=== PATIENT | male | born 1975 | race Caucasian/White ===

== ENCOUNTER 2025-05-07 16:39 | Emergency (ER) | payer MEDICAID, SELFPAY ==
[2025-05-07 16:41] VITALS: BP 142/118; PULSE 82; RESP 13; TEMP 36.4; O2SAT 97; BMI 31.0
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
[2025-05-07 17:02] LABS: Hematocrit 43.2 % (40-54); Hemoglobin 14.9 g/dL (13.0-16.5); Immature Granulocytes Count 0.050 X10^3/uL (0.0-0.0); Mean Corp Hgb Conc 34.5 g/dL (32-36); Mean Corpuscular Volume 90.6 fL (80-94); Mean Platelet Vol. 9.4 fl (6.2-12.0); NRBC Flagged by Analyzer 0 % (0-5); Platelet Count 215 K/mm3 (150-450); RBC Distribution Width CV 12.0 % (11.6-14.6); RBC Distribution Width SD 39.9 fl (35.1-43.9); Red Blood Count 4.77 M/mm3 (4.6-6.2); White Blood Count 9.4 K/mm3 (4.4-11.0)
[2025-05-07 17:06] LABS: Prothrombin Time (Protime)PT. 13.1 SECONDS (11.7-14.9)
[2025-05-07 17:07] LABS: Partial Thromboplast Time 23.9 Seconds (24.1-36.2)
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
[2025-05-07 17:28] LABS: Anion Gap 15 (5-15); BUN 19 mg/dL (4-19); BUN/Creat Ratio 19.0 RATIO (10-20); Calcium,Total 7.8 mg/dL (7.6-11.0); Carbon Dioxide 16.0 mmol/L (21.0-32.0); Chloride 105 mmol/L (98-108); Estimated Creatinine Clearance 104.94 ml/min (50-250); Glucose 90 mg/dL (70-99); Potassium 3.7 mmol/L (3.3-5.1)
[2025-05-07] MEDS: Lidocaine 1% /Epi 1:100 (20ml) 20 ML Vial INFILT (17:32)
--- OUTSIDE RECORDS SUMMARY | 2025-05-07 17:35 | XMS RPT_ITS | CCD ---
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 08-23-2024 Office outpatient visit 15 minutes Fay Rouse MD Work Phone: [facility] Comment on above: Acute iritis (Primar y Dx) Start: 08-23-2024 End: 08-23-2024 ambulatory [facility] Start: 08-16-2024 End: 08-16-2024 Emergency department patient visit NO PCP AA NO PCP [facility] Start: 08-15-2024 End: 08-15-2024 Telephone encounter Fay Rouse MD Work Phone: [facility] Comment on above: Iritis, chronic (Paola kristine Dx) Start: 08-11-2024 End: 08-11-2024 Subsequent hospital visit by physician Fay Rouse MD Work Phone: [facility] [address] [facility] Comment on above: Acute iritis Start: 08-11-2024 End: 11-10-2024 ambulatory [facility] Comment on above: Unspecified acute an d subacute iridocyclitis (Primary Dx) Start: 08-09-2024 End: 08-09-2024 Office outpatient visit 15 minutes Fay Rouse MD Work Phone: [facility] [place] Comment on above: Acute iritis (Primar y Dx) Start: 08-09-2024 End: 08-09-2024 ambulatory [facility] Start: 08-08-2024 End: 08-08-2024 Telephone encounter Serena Garcia [facility] [place] Comment on above: Eye Problem Start: 11-12-2022 End: 11-12-2022 Subsequent hospital visit by physician Alvin Valles MD Work Phone: [facility] Comment on above: Acute iritis (Primar y Dx) Start: 11-03-2022 Refill [facility] Comment on above: OTHER Start: 10-29-2022 End: 10-29-2022 Subsequent hospital visit by physician Anamika Madison MD Work Phone: [facility] Comment on above: Acute anterior uveit is of left eye (Primary Dx) Start: 10-24-2022 Telephone encounter Noemí leroy MD Work Phone: [facility] Comment on above: Appointment Start: 10-24-2022 End: 10-24-2022 Subsequent hospital visit by physician Alvin Valles MD Work Phone: [facility] Comment on above: Acute anterior uveit is of right eye (Primary Dx) Start: 10-17-2022 End: 10-17-2022 Subsequent hospital visit by physician Anamika Madison MD Work Phone: [facility] Comment on above: Acute iritis (Primar y Dx); Acute anterior uveitis of left eye Start: 10-14-2022 End: 10-14-2022 Subsequent hospital visit by physician Anamika Madison MD Work Phone: [facility] Comment on above: Acute iritis (Primar y Dx) Start: 12-21-2018 Patient encounter procedure UNKNOWN PROVIDER [facility] Start: 12-14-2018 Patient encounter procedure UNKNOWN PROVIDER [facility] Start: 12-06-2018 Patient encounter procedure UNKNOWN PROVIDER [facility] Start: 12-03-2018 Emergency department patient visit UNKNOWN PROVIDER [facility] Start: 06-29-2018 Emergency department patient visit UNKNOWN PROVIDER [facility] Start: 04-06-2016 End: 04-06-2016 Emergency department patient visit [facility] Facility:[facility] Plan of Treatment Date Care Activity Detail Author Start: 2051 RSV Immunization for Adults (1 - 1-dose 75+ series) RSV Immunization for Adults (1 - 1-dose 75+ series) [facility] Start: 2026 Zoster Vaccines (1 o f 2) Zoster Vaccines (1 of 2) [facility] Start: 09-27-2024 End: 09-27-2024 Patient encounter procedure 09/27/2024 8:45 AM EST Appointment [facility] [address] [place] [address] Fay Rouse MD [address] [place], [place] [id number] [facility] [place] Start: 09-08-2024 End: 08-09-2025 XR Chest 2 Views XR chest 2 views Imaging Routine Acute iritis Expected: 09/08/2024, Expires: 08/09/2025 [facility] Comment on above: Expected: 09/08/2024 , Expires: 08/09/2025 Start: 08-31-2024 End: 08-31-2024 Patient encounter procedure 08/31/2024 1:30 PM EST Appointment [facility] [place] [address] [place] [phone] Fay Rouse MD [address] [place] [address] [facility] [place] Start: 08-29-2024 End: 08-29-2024 Patient encounter procedure 08/29/2024 1:45 PM EST Appointment [facility] [place] [address] [place] [phone] Fay Rouse MD [address] [place] [address] [facility] [place] Start: 08-23-2024 End: 08-23-2024 Patient encounter procedure 08/23/2024 8:30 AM EST Appointment [facility] [place] [address] [place] [phone] Fay Rouse MD [address] [place] [address] [facility] [place] Start: 08-15-2024 End: 08-15-2025 Acetylcholine receptor, binding Acetylcholine receptor, binding Lab Routine Iritis, chronic Expected: 08/15/2024 (Approximate), Expires: 08/15/2025 [facility] Comment on above: Expected: 08/15/2024 (Approximate), Expires: 08/15/2025 Start: 08-15-2024 End: 08-15-2025 MAINE Screen, IFA, Reflex Titer/Pattern/MPLX 11 Ab ([facility]) MAINE Screen, IFA, Reflex Titer/Pattern/MPLX 11 Ab ([facility]) Lab Routine Iritis, chronic Expected: 08/15/2024 (Approximate), Expires: 08/15/2025 [facility] Comment on above: Expected: 08/15/2024 (Approximate), Expires: 08/15/2025 Start: 08-15-2024 End: 08-15-2025 Angiotensin converting enzyme [Enzymatic activity/volume] in Serum or Plasma Angiotensin converting enzyme Lab Routine Iritis, chronic Expected: 08/15/2024 (Approximate), Expires: 08/15/2025 [facility] Work Phone: Comment on above: Expected: 08/15/2024 (Approximate), Expires: 08/15/2025 Start: 08-15-2024 End: 08-15-2025 C reactive protein [Mass/volume] in Serum or Plasma C-reactive protein Lab Routine Iritis, chronic Expected: 08/15/2024 (Approximate), Expires: 08/15/2025 [facility] Comment on above: Expected: 08/15/2024 (Approximate), Expires: 08/15/2025 Start: 08-15-2024 End: 08-15-2025 CBC panel - Blood by Automated count CBC Lab Routine Iritis, chronic Expected: 08/15/2024 (Approximate), Expires: 08/15/2025 [facility] Comment on above: Expected: 08/15/2024 (Approximate), Expires: 08/15/2025 Start: 08-15-2024 End: 08-15-2025 Erythrocyte sedimentation rate Sedimentation rate, automated Lab Routine Iritis, chronic Expected: 08/15/2024 (Approximate), Expires: 08/15/2025 [facility] Comment on above: Expected: 08/15/2024 (Approximate), Expires: 08/15/2025 Start: 08-15-2024 End: 08-15-2025 Lyme disease, PCR Lyme disease, PCR Lab Routine Iritis, chronic Expected: 08/15/2024 (Approximate), Expires: 08/15/2025 [facility] Comment on above: Expected: 08/15/2024 (Approximate), Expires: 08/15/2025 Start: 08-15-2024 End: 08-15-2025 QUANTIFERON TB GOLD Quantiferon TB Gold Lab Routine Iritis, chronic Expected: 08/15/2024 (Approximate), Expires: 08/15/2025 [facility] Comment on above: Expected: 08/15/2024 (Approximate), Expires: 08/15/2025 Start: 08-15-2024 End: 08-15-2025 Reagin Ab [Presence] in Serum by RPR RPR Lab Routine Iritis, chronic Expected: 08/15/2024 (Approximate), Expires: 08/15/2025 [facility] Comment on above: Expected: 08/15/2024 (Approximate), Expires: 08/15/2025 Start: 08-11-2024 End: 08-11-2025 Borrelia burgdorferi IgG+IgM Ab [Units/volume] in Serum LYME ANTIBODY SCREEN WITH REFLEX TO IMMUNOBLOT Lab Routine Unspecified acute and subacute iridocyclitis Expected: 08/11/2024 (Approximate), Expires: 08/11/2025 [facility] Comment on above: Expected: 08/11/2024 (Approximate), Expires: 08/11/2025 Start: 08-11-2024 End: 08-11-2025 Borrelia Species by PCR(Lyme Disease) (Sendout) Borrelia Species by PCR(Lyme Disease) (Sendout) Lab Routine Unspecified acute and subacute iridocyclitis Expected: 08/11/2024 (Approximate), Expires: 08/11/2025 [facility] Work Phone: Comment on above: Expected: 08/11/2024 (Approximate), Expires: 08/11/2025 Start: 08-11-2024 End: 08-11-2025 HIV 1 RNA [#/volume] (viral load) in Serum or Plasma by DORENE with probe detection HIV-1 RNA, Quantitative Viral Load, PCR Lab Routine Unspecified acute and subacute iridocyclitis Expected: 08/11/2024 (Approximate), Expires: 08/11/2025 [facility] Comment on above: Expected: 08/11/2024 (Approximate), Expires: 08/11/2025 Start: 08-09-2024 End: 08-09-2025 Angiotensin converting enzyme [Enzymatic activity/volume] in Serum or Plasma Angiotensin converting enzyme Lab Routine Acute iritis Expected: 08/09/2024 (Approximate), Expires: 08/09/2025 [facility] Comment on above: Expected: 08/09/2024 (Approximate), Expires: 08/09/2025 Start: 08-09-2024 End: 08-09-2025 Basic metabolic 1998 panel - Serum or Plasma Basic metabolic panel Lab Routine Acute iritis Expected: 08/09/2024 (Approximate), Expires: 08/09/2025 [facility] Work Phone: Comment on above: Expected: 08/09/2024 (Approximate), Expires: 08/09/2025 Start: 08-09-2024 End: 08-09-2025 CBC panel - Blood by Automated count CBC Lab Routine Acute iritis Expected: 08/09/2024 (Approximate), Expires: 08/09/2025 [facility] Comment on above: Expected: 08/09/2024 (Approximate), Expires: 08/09/2025 Start: 08-09-2024 End: 08-09-2025 Lyme disease, PCR Lyme disease, PCR Lab Routine Acute iritis Expected: 08/09/2024 (Approximate), Expires: 08/09/2025 [facility] Comment on above: Expected: 08/09/2024 (Approximate), Expires: 08/09/2025 Start: 08-09-2024 End: 08-09-2025 QUANTIFERON TB GOLD Quantiferon TB Gold Lab Routine Acute iritis Expected: 08/09/2024 (Approximate), Expires: 08/09/2025 [facility] Comment on above: Expected: 08/09/2024 (Approximate), Expires: 08/09/2025 Start: 08-09-2024 End: 08-09-2025 Reagin Ab [Presence] in Serum by RPR RPR Lab Routine Acute iritis Expected: 08/09/2024 (Approximate), Expires: 08/09/2025 [facility] Comment on above: Expected: 08/09/2024 (Approximate), Expires: 08/09/2025 Start: 08-09-2024 End: 08-09-2025 Rheumatoid factor [Units/volume] in Serum or Plasma Rheumatoid factor Lab Routine Acute iritis Expected: 08/09/2024 (Approximate), Expires: 08/09/2025 [facility] Comment on above: Expected: 08/09/2024 (Approximate), Expires: 08/09/2025 Start: 08-09-2024 End: 09-08-2024 XR Lumbar spine 2 or 3 Views XR lumbar spine 2 or 3 views Imaging Routine Acute iritis Expected: 08/09/2024, Expires: 09/08/2024 [facility] Comment on above: Expected: 08/09/2024 , Expires: 09/08/2024 Start: 08-09-2024 End: 08-09-2024 Patient encounter procedure 08/09/2024 1:00 PM EST Appointment [facility] [place] [address] [place] [phone] Fay Rouse MD [address] [place] [address] [facility] [place] Start: 05-29-2024 COVID-19 Vaccine ( season) COVID-19 Vaccine () [facility] Start: 05-29-2024 Influenza vaccination Influenza Vacc ine (#1) [facility] Start: 01-08-2023 End: 01-08-2023 Patient encounter procedure 01/08/2023 Office Visit Rheumatology Noemí Novak MD [address] [place] [address] [facility] Start: 12-05-2022 End: 12-05-2022 Patient encounter procedure 12/05/2022 Appointment Ophthalmology Alvin Valles MD [address] [place] [address] [facility] Start: 12-02-2022 End: 12-02-2022 Patient encounter procedure 12/02/2022 Appointment Ophthalmology Alvin Valles MD [address] [place] [address] [facility] Start: 11-12-2022 End: 11-12-2022 Patient encounter procedure 11/12/2022 Appointment Ophthalmology Alvin Valles MD [address] [place] [address] [facility] Start: 10-29-2022 End: 10-29-2022 Patient encounter procedure 10/29/2022 Appointment Ophthalmology Anamika Madison MD [address] [place], [place] [id number] [facility] Start: 10-24-2022 End: 10-24-2022 Patient encounter procedure 10/24/2022 Appointment Ophthalmology Alvin Valles MD [address] [place], [place] [phone] [facility] Start: 10-17-2022 End: 10-17-2022 Patient encounter procedure 10/17/2022 Appointment Ophthalmology Anamika Madison MD [address] [place] [address] [facility] Start: 05-29-2022 Influenza vaccination Influenza Vacc ine (#1) [facility] Start: 10-09-2021 COVID-19 Vaccine (4 - Booster for Pfizer series) COVID-19 Vaccine (4 - Booster for Pfizer series) [facility] Start: 1995 DTaP/Tdap/Td Vaccine s (1 - Tdap) DTaP/Tdap/Td Vaccines (1 - Tdap) [facility] Start: 1995 Hepatitis B Vaccines (1 of 3 - 19+ 3-dose series) Hepatitis B Vaccines (1 of 3 - 19+ 3-dose series) [facility] Start: 1995 Pneumococcal Vaccine : Pediatrics (0 to 5 Years) and At-Risk Patients (6 to 49 Years) (1 of 2 - PCV) Pneumococcal Vaccine: Pediatrics (0 to 5 Years) and At-Risk Patients (6 to 49 Years) (1 of 2 - PCV) [facility] Start: 1994 Diabetes mellitus screening Diabetes Screening [facility] Start: 1994 Hepatitis C screening Hepatitis C [facility] Start: 1988 Depression Screening Depression Scre idris [facility] Start: 1982 Pneumococcal Vaccine : Pediatrics (0 to 5 Years) and At-Risk Patients (6 to 64 Years) (1 - PCV) Pneumococcal Vaccine: Pediatrics (0 to 5 Years) and At-Risk Patients (6 to 64 Years) (1 - PCV) [facility] Start: 1982 Pneumococcal Vaccine : Pediatrics (0 to 5 Years) and At-Risk Patients (6 to 64 Years) (1 of 2 - PCV) Pneumococcal Vaccine: Pediatrics (0 to 5 Years) and At-Risk Patients (6 to 64 Years) (1 of 2 - PCV) [facility] Start: 1977 MMR Vaccines (1 of 1 - Standard series) MMR Vaccines (1 of 1 - Standard series) [facility] Start: 1976 Hepatitis B Vaccines (1 of 3 - 3-dose series) Hepatitis B Vaccines (1 of 3 - 3-dose series) [facility] Start: 1976 HIV screening HIV Screening [facility] Start: 1976 Lipid panel Lipid Panel [facility] Start: 1976 Screening for malign ant neoplasm of colon [facility] QUANTIFERON - PLUS G RAY TUBE QUANTIFERON - PLUS GALLAGHER TUBE Lab Routine Iritis, chronic Ordered: 08/15/2024 [facility] Comment on above: Ordered: 08/15/2024 QUANTIFERON - PLUS GREEN TUBE QUANTIFERON - PLUS GREEN TUBE Lab Routine Iritis, chronic Ordered: 08/15/2024 [facility] Comment on above: Ordered: 08/15/2024 QUANTIFERON - PLUS PURPLE TUBE QUANTIFERON - PLUS PURPLE TUBE Lab Routine Iritis, chronic Ordered: 08/15/2024 [facility] Comment on above: Ordered: 08/15/2024 QUANTIFERON - PLUS YELLOW TUBE QUANTIFERON - PLUS YELLOW TUBE Lab Routine Iritis, chronic Ordered: 08/15/2024 [facility] Comment on above: Ordered: 08/15/2024 End: 08-11-2024 XR Chest 2 Views [facility] Comment on above: Once for 1 Occurrenc es starting 08/11/2024 until 08/11/2024 End: 08-11-2024 XR Lumbar spine 2 or 3 Views [facility] Comment on above: Once for 1 Occurrenc es starting 08/11/2024 until 08/11/2024 Payers Date Payer Category Payer Medicaid HMO [employer] [id number] 2022 Medicaid [id number] 1976 Unknown [id number] 1976 Unknown [id number] 1976 Unknown [id number] 1976 Unknown [id number] 1976 Unknown [id number] 1976 Unknown [id number] 1959 Medicaid [id number] Self-pay Unknown Social History Date Type Detail Facility Start: 08-09-2024 Tobacco smoking status [facility] Smokes t obacco daily [facility] History of tobacco use Cigarette Smoker S [facility] Start: 09-15-2023 End: 08-09-2024 Alcoholic beverage intake Current drinker of alcohol (finding) [facility] Start: 09-15-2023 End: 08-23-2024 Alcoholic beverage intake [facility] Start: 09-15-2023 End: 08-23-2024 Tobacco use panel [facility] Start: 1975 Sex assigned at Not on file S [facility] Start: 04-28-2022 Sex Male (finding) [facility] Start: 08-09-2024 Tobacco use and exposure Smokeless t obacco non-user [facility] Start: 10-04-2022 End: 11-12-2022 Exposure to SARS-CoV-2 (event) Not sure [facility] Start: 10-14-2022 End: 10-17-2022 Alcohol intake Ex-drinker (finding) [facility] Clinical Notes 10-14-2022 to 09-02-2024 Telephone Encounter - Fay Rouse MD - 09/02/2024 8:50 AM ESTTelephone Encounter - Fay Rouse MD - 09/02/2024 8:50 AM ESTTelephone Encounter - Minda Tomas - 08/29/2024 3:14 PM EST Note Date & Type Note Facility 09-02-2024 Telephone encount er Note Called pt with result of cbc; has high eosinophils . He does not have a primary care doctor, so he will schedule with one, and we will repeat the cbc on his return visit on . He has stopped all of his drops, and will take pf every day x 1 week, then every other day until next visit. [facility] 09-02-2024 Miscellaneous Notes Formattin g of this note might be different from the original. Called pt with result of cbc; has high eosinophils . He does not have a primary care doctor, so he will schedule with one, and we will repeat the cbc on his return visit on . He has stopped all of his drops, and will take pf every day x 1 week, then every other day until next visit. documented in this encounter [facility] 08-29-2024 Telephone encount er Note Called patient for no show appointment today, patient stated he forgot and to reschedule and leave message for him of date and time and that he will make appointment. I called patient back and left message with appointment information and advised he needs to call back if unable to make it. [facility] 08-29-2024 Miscellaneous Notes Formattin g of this note might be different from the original. Called patient for no show appointment today, patient stated he forgot and to reschedule and leave message for him of date and time and that he will make appointment. I called patient back and left message with appointment information and advised he needs to call back if unable to make it. documented in this encounter [facility] 08-23-2024 History of Presen t illness Narrative Images from the original note were not included. [facility] - [address] [facility] [address] Dept: [phone] Dept Loc: [phone] Visit type: Established patient Reason for Visit: Other (Acute iritis ) Assessment and Plan Much better now Plan Continue brimonidine bid, atropine 1 ggt od every other day, pf 6 x per day for 3 days then qid. Rv next week Subjective HPI Other Additional comments: Acute iritis Comments Pt here for return visit acute iritis. C/o seeing small dark dots on va od pretty much all the time x about 2 weeks and little sensitive to the light, mostly at night, but may be from aging per pt. Sts no more cloudy va od. Sts no any more pain, burning and itching ou. Sts using prednisolone q1h od, red top 2 x day od, purple 2 x day od. Last edited by Fay Rouse MD on 08/23/2024 9:10 AM. ROS Positive for: Eyes Last edited by Serena Garcia on 08/23/2024 8:31 AM. No Known Allergies Current Outpatient Medications Medication Sig Dispense Refill cephalexin (Keflex) 500 MG capsule sulfamethoxazole-trimethoprim (Bactrim DS) 800-160 MG tablet acetaminophen (Tylenol) 120 MG suppository Insert into the rectum. atropine 1 % ophthalmic solution Administer 1 drop into the right eye 2 times daily. 5 mL 1 brimonidine (AlphaGAN) 0.2 % ophthalmic solution Administer 1 drop into the right eye 2 times daily. 5 mL 3 prednisoLONE acetate (Pred-Forte) 1 % ophthalmic suspension Administer 1 drop into the right eye every 2 (two) hours while awake for 14 days. 10 mL 3 No current facility-administered medications for this encounter. Past Medical History: Diagnosis Date Acute anterior uveitis of left eye 12/06/2018 Blurry vision Decreased vision Light sensitivity Social History Tobacco Use Smoking status: Every Day Current packs/day: 1.00 Types: Cigarettes Smokeless tobacco: Never Substance Use Topics Alcohol use: Yes Alcohol/week: 12.0 standard drinks of alcohol Types: 12 Cans of beer per week Past Surgical History: Procedure Laterality Date TONSILLECTOMY (HISTORICAL) Family History Problem Relation Name Age of Onset Blindness Mother Diabetes Mother Glaucoma Neg Hx Cataracts Neg Hx Amblyopia Neg Hx Retinal detachment Neg Hx Macular degeneration Neg Hx Strabismus Neg Hx Objective Base Eye Exam Visual Acuity (Snellen - Linear) Right Left Dist cc 20/20 -2 20/20 Tonometry (Applanation, 8:42 AM) Right Left Pressure 16 15 Neuro/Psych Oriented x3: Yes Mood/Affect: Normal Slit Lamp and Fundus Exam Slit Lamp Exam Right Left Conjunctiva/Sclera White and quiet White and quiet Cornea Clear Clear Anterior Chamber deep and quiet deep and quiet Iris irregular pupillary ruff irregular pupillary ruff Lens pigment on ant surface pigment on ant surface Data Reviewed and Summarized No current labs Fay Rouse MD documented in this encounter [facility] 08-15-2024 History of Presen t illness Narrative Images from the original note were not included. [facility] [address] [place] [address] Dept: [phone] Loc: [phone] Visit type: Established patient Reason for Visit: No chief complaint on file. Assessment and Plan Problem List Items Addressed This Visit None Visit Diagnoses Iritis, chronic - Primary Relevant Orders Angiotensin converting enzyme CBC Acetylcholine receptor, binding C-reactive protein Sedimentation rate, automated Quantiferon TB Gold RPR Lyme disease, PCR MA[place] Screen, IFA, Reflex Titer/Pattern/MPLX 11 Ab ([facility]) No follow-ups on file. Subjective No Known Allergies Current Outpatient Medications Medication Sig Dispense Refill acetaminophen (Tylenol) 120 MG suppository Insert into the rectum. atropine 1 % ophthalmic solution Administer 1 drop into the right eye 2 times daily. 5 mL 1 brimonidine (AlphaGAN) 0.2 % ophthalmic solution Administer 1 drop into the right eye 2 times daily. 5 mL 3 prednisoLONE acetate (Pred-Forte) 1 % ophthalmic suspension Administer 1 drop into the right eye every 2 (two) hours while awake for 14 days. 10 mL 3 No current facility-administered medications for this visit. Past Medical History: Diagnosis Date Acute anterior uveitis of left eye 12/06/2018 Blurry vision Decreased vision Light sensitivity Social History Tobacco Use Smoking status: Every Day Current packs/day: 1.00 Types: Cigarettes Smokeless tobacco: Never Substance Use Topics Alcohol use: Yes Alcohol/week: 12.0 standard drinks of alcohol Types: 12 Cans of beer per week Past Surgical History: Procedure Laterality Date TONSILLECTOMY (HISTORICAL) Family History Problem Relation Name Age of Onset Blindness Mother Diabetes Mother Glaucoma Neg Hx Cataracts Neg Hx Amblyopia Neg Hx Retinal detachment Neg Hx Macular degeneration Neg Hx Strabismus Neg Hx Objective Not recorded Data Reviewed and Summarized The patient will need the following 13 tests completed on: 08/15/2024 1. Angiotensin converting enzyme 8. CBC 2. Acetylcholine receptor, binding 9. C-reactive protein 3. Sedimentation rate, automated 10. Quantiferon TB Gold 4. RPR 11. Lyme disease, PCR 5. QUANTIFERON - PLUS GALLAGHER TUBE 12. QUANTIFERON - PLUS GREEN TUBE 6. QUANTIFERON - PLUS PURPLE TUBE 13. QUANTIFERON - PLUS YELLOW TUBE 7. MAINE Screen, IFA, Reflex Titer/Pattern/MPLX 11 Ab ([facility]) Diagnosis: Iritis, chronic (H20.10) Authorizing Provider: MD Fay Lima MD documented in this encounter [facility] 08-15-2024 Telephone encount er Note Pt called at home with results for no ankylosing spondylitis on spine films and no sarcoidosis or tb on chest xray. Still needs to have labs ordered. [facility] 08-15-2024 Miscellaneous Notes Formattin g of this note might be different from the original. Pt called at home with results for no ankylosing spondylitis on spine films and no sarcoidosis or tb on chest xray. Still needs to have labs ordered. documented in this encounter [facility] 08-09-2024 History of Presen t illness Narrative Images from the original note were not included. [facility] - [address] [facility] [address] Dept: [phone] Dept Loc: [phone] Visit type: Established patient Reason for Visit: Other (Red, foggy and pain od) Recurrent anterior uveitis right eye; no evidence of prior lab tests or xrays Assessment and Plan Recurrent uveitis right eye. Pt call immediately for office visit when eye becomes red, sore and sensitive to light Predforte right eye q 1 - 2 hours while awake, brimonidine od bid, atropine 1% od bid Get labs and cxr and ls spine films Rv 1 - 2 weeks Subjective HPI Other Additional comments: Red, foggy and pain od Comments Pt with Hx of acute anterior uveitis presents to the clinic c/o red, foggy and painful od. C/o feels like muscle stretch on peripheral side od and really sore 3 days ago but not now. C/o one minute va od blurry and than turns lilly barley see through like fog x about 4 days. C/o od very sensitive to the light no any burning, itching and tearing. Sts using OTC drops (gtts) PRN ou Last edited by Serena Garcia on 08/09/2024 1:20 PM. ROS Positive for: Eyes Last edited by Serena Garcia on 08/09/2024 1:20 PM. No Known Allergies Current Outpatient Medications Medication Sig Dispense Refill acetaminophen (Tylenol) 120 MG suppository Insert into the rectum. No current facility-administered medications for this encounter. Past Medical History: Diagnosis Date Acute anterior uveitis of left eye 12/06/2018 Blurry vision Decreased vision Light sensitivity Social History Tobacco Use Smoking status: Every Day Current packs/day: 1.00 Types: Cigarettes Smokeless tobacco: Never Substance Use Topics Alcohol use: Yes Alcohol/week: 12.0 standard drinks of alcohol Types: 12 Cans of beer per week Past Surgical History: Procedure Laterality Date TONSILLECTOMY (HISTORICAL) Family History Problem Relation Name Age of Onset Blindness Mother Diabetes Mother Glaucoma Neg Hx Cataracts Neg Hx Amblyopia Neg Hx Retinal detachment Neg Hx Macular degeneration Neg Hx Strabismus Neg Hx Objective Base Eye Exam Visual Acuity (Snellen - Linear) Right Left Dist cc 20/20 20/20 Tonometry (Applanation, 1:25 PM) Right Left Pressure 18 16 Neuro/Psych Oriented x3: Yes Mood/Affect: Normal Slit Lamp and Fundus Exam Slit Lamp Exam Right Left Conjunctiva/Sclera 2+ injections Cornea Clear Anterior Chamber 2+ cell Iris koeppe nodules, hx post synechiae Data Reviewed and Summarized No current labs Fay Rouse MD documented in this encounter [facility] 08-09-2024 History of Presen t illness Narrative Images from the original note were not included. [facility] - [address] [facility] [address] Dept: [phone] Dept Loc: [phone] Visit type: Established patient Reason for Visit: Other (Red, foggy and pain od) Recurrent anterior uveitis right eye; no evidence of prior lab tests or xrays Assessment and Plan Recurrent uveitis right eye. Pt call immediately for office visit when eye becomes red, sore and sensitive to light Predforte right eye q 1 - 2 hours while awake, brimonidine od bid, atropine 1% od bid Get labs and cxr and ls spine films Rv 1 - 2 weeks Subjective HPI Other Additional comments: Red, foggy and pain od Comments Pt with Hx of acute anterior uveitis presents to the clinic c/o red, foggy and painful od. C/o feels like muscle stretch on peripheral side od and really sore 3 days ago but not now. C/o one minute va od blurry and than turns lilly barley see through like fog x about 4 days. C/o od very sensitive to the light no any burning, itching and tearing. Sts using OTC drops (gtts) PRN ou Last edited by Serena Garcia on 08/09/2024 1:20 PM. ROS Positive for: Eyes Last edited by Serena Garcia on 08/09/2024 1:20 PM. No Known Allergies Current Outpatient Medications Medication Sig Dispense Refill acetaminophen (Tylenol) 120 MG suppository Insert into the rectum. No current facility-administered medications for this encounter. Past Medical History: Diagnosis Date Acute anterior uveitis of left eye 12/06/2018 Blurry vision Decreased vision Light sensitivity Social History Tobacco Use Smoking status: Every Day Current packs/day: 1.00 Types: Cigarettes Smokeless tobacco: Never Substance Use Topics Alcohol use: Yes Alcohol/week: 12.0 standard drinks of alcohol Types: 12 Cans of beer per week Past Surgical History: Procedure Laterality Date TONSILLECTOMY (HISTORICAL) Family History Problem Relation Name Age of Onset Blindness Mother Diabetes Mother Glaucoma Neg Hx Cataracts Neg Hx Amblyopia Neg Hx Retinal detachment Neg Hx Macular degeneration Neg Hx Strabismus Neg Hx Objective Base Eye Exam Visual Acuity (Snellen - Linear) Right Left Dist cc 20/20 20/20 Tonometry (Applanation, 1:25 PM) Right Left Pressure 18 16 Neuro/Psych Oriented x3: Yes Mood/Affect: Normal Slit Lamp and Fundus Exam Slit Lamp Exam Right Left Conjunctiva/Sclera 2+ injections Cornea Clear Anterior Chamber 2+ cell Iris koeppe nodules, hx post synechiae Data Reviewed and Summarized No current labs Fay Rouse MD documented in this encounter [facility] 08-09-2024 Miscellaneous Notes Addended by: MINDA WOODALL on: 08/11/2024 01:22 PM Modules accepted: Orders Addended by: MINDA WOODALL on: 08/11/2024 01:23 PM Modules accepted: Orders documented in this encounter [facility] 08-09-2024 Note Addended by: Trenton WOODALL on: 08/11/2024 01:22 PM Modules accepted: Orders [facility] 08-09-2024 Note Addended by: Trenton WOODALL on: 08/11/2024 01:23 PM Modules accepted: Orders [facility] 08-09-2024 Note Addended by: Trenton WOODALL on: 08/11/2024 01:22 PM Modules accepted: Orders [facility] 08-09-2024 Note Addended by: Trenton WOODALL on: 08/11/2024 01:23 PM Modules accepted: Orders [facility] 08-09-2024 Note Addended by: Trenton WOODALL on: 08/11/2024 01:22 PM Modules accepted: Orders [facility] 08-09-2024 Note Addended by: Trenton WOODALL on: 08/11/2024 01:23 PM Modules accepted: Orders [facility] 08-09-2024 Note Addended by: Trenton WOODALL on: 08/11/2024 01:22 PM Modules accepted: Orders [facility] 08-09-2024 Note Addended by: Trenton WOODALL on: 08/11/2024 01:23 PM Modules accepted: Orders [facility] 08-09-2024 Note Addended by: Trenton WOODALL on: 08/11/2024 01:22 PM Modules accepted: Orders [facility] 08-09-2024 Note Addended by: Trenton WOODALL on: 08/11/2024 01:23 PM Modules accepted: Orders [facility] 08-08-2024 Telephone encount er Note Call and left msg to call us back with detail information about the floater. At the mean time pt call stating pt is seeing floater at first. Than od look red, va foggy. Pt talking on the phone does not want to give detail information but just wanted to schedule apt. Pt said ok schedule apt in Dec and let him loose his eye. Try to convince her but she is not listening. [facility] 08-08-2024 Miscellaneous Notes Formattin g of this note might be different from the original. Call and left msg to call us back with detail information about the floater. At the mean time pt call stating pt is seeing floater at first. Than od look red, va foggy. Pt talking on the phone does not want to give detail information but just wanted to schedule apt. Pt said ok schedule apt in Dec and let him loose his eye. Try to convince her but she is not listening. documented in this encounter [facility] 11-12-2022 History of Presen t illness Narrative Images from the original note were not included. [facility] CLNIC [address] [facility] [address] Dept: [phone] Dept Loc: [phone] Visit type: Established patient Reason for Visit: acute anterior uveitis od Assessment and Plan 1. Acute iritis 1 - This is at least anterior and intermediate uveitis since there are cells in the vitreous but it's not a panuveitis at this time. Patient is much improved compared to the last time I saw him so will not inject steroids at this time. Follow up in about 2 weeks (around 11/26/2022) for DOA. Subjective HPI 47 years old male with Hx of acute anterior uveitis od here for follow-up may be vitreous injection. Sts little blurry/foggy va od no pain but little sensitive to the light. Denies any burning, itching and tearing ou. Sts using white cap q1h od, registered nurse float pool 3 x day and chung cap 4 x day od Last edited by Serena Garcia on 11/12/2022 8:54 AM. ROS Positive for: Eyes Last edited by Serena Garcia on 11/12/2022 8:54 AM. No Known Allergies @[email or web address]@ Past Medical History: Diagnosis Date Acute anterior uveitis of left eye 12/06/2018 Blurry vision Decreased vision Light sensitivity Social History Tobacco Use Smoking status: Every Day Packs/day: 1.00 Types: Cigarettes Smokeless tobacco: Never Substance Use Topics Alcohol use: Yes Alcohol/week: 12.0 standard drinks Types: 12 Cans of beer per week Past Surgical History: Procedure Laterality Date TONSILLECTOMY (HISTORICAL) Family History Problem Relation Name Age of Onset Blindness Mother Diabetes Mother Glaucoma Neg Hx Cataracts Neg Hx Amblyopia Neg Hx Retinal detachment Neg Hx Macular degeneration Neg Hx Strabismus Neg Hx Objective Base Eye Exam Visual Acuity (Snellen - Linear) Right Left Dist sc 20/25 +2 Dist cc 20/50 -1 20/20 Dist ph cc 20/25 Tonometry (Applanation, 9:00 AM) Right Left Pressure 16 14 Pupils Dark Light APD Right 4 4 None Left 3 2 None Slit Lamp and Fundus Exam Slit Lamp Exam Right Left Lids/Lashes Normal Conjunctiva/Sclera w/q Cornea clear Anterior Chamber 1+ Cell and 1+ Flare Iris only a few small posterior synechiae left Lens Pigment on anterior lens surface Anterior Vitreous 2+ cell Fundus Exam Right Left Disc Normal C/D Ratio 0.0 Macula Normal Vessels Normal Periphery Normal Refraction Wearing Rx Sphere Cylinder Add Right +0.50 Sphere +1.50 Left +0.50 Sphere +1.50 Data Reviewed and Summarized Labs: Imaging/Testing: Procedures: Alvin Valles MD documented in this encounter [facility] 11-03-2022 Telephone encount er Note Sent message to Dr Maye donnelly for refills. deshaun [facility] 11-03-2022 Miscellaneous Notes Formattin g of this note might be different from the original. Sent message to Dr Maye donnelly for refills. deshaun [facility] called stating that Yony is out of his medication and. needs a refill on the cyclopentolate Contact Information: [phone] [address]ony [address] documented in this encounter [facility] 11-03-2022 Telephone encount er Note [facility] called stating that Yony is out of his medication and. needs a refill on the cyclopentolate Contact Information: [phone] [address]ony Shaw [address] [facility] 10-29-2022 Evaluation + Plan note Associated Problem(s): Acute anterior uveitis of left eye Vision has significantly improved. I agree with Dr. Valles that the hazy view to fundus implies vitreous cell. I believe I can visualize some in the anterior vitreous looking with the slit lamp right behind the lens. I will have him follow up with Dr. Valles to consider vitreous injection. Continue current drops. [facility] 10-29-2022 Miscellaneous Notes Associate d Problem(s): Acute anterior uveitis of left eye Vision has significantly improved. I agree with Dr. Valles that the hazy view to fundus implies vitreous cell. I believe I can visualize some in the anterior vitreous looking with the slit lamp right behind the lens. I will have him follow up with Dr. Valles to consider vitreous injection. Continue current drops. documented in this encounter [facility] 10-29-2022 History of Presen t illness Narrative Images from the original note were not included. [facility] CLN[facility] [address] [facility] [address] Dept: [phone] Dept Loc: [phone] Visit type: Established patient Reason for Visit: acute anterior uveitis od Assessment and Plan Acute anterior uveitis of left eye Vision has significantly improved. I agree with Dr. Valles that the hazy view to fundus implies vitreous cell. I believe I can visualize some in the anterior vitreous looking with the slit lamp right behind the lens. I will have him follow up with Dr. Valles to consider vitreous injection. Continue current drops. Follow up in about 1 week (around 11/05/2022). Subjective HPI 47 years old male here for follow-up acute anterior uveitis od. Sts va od lot better but still haggy. Sts still sensitive to super bright light. Sts stings only while using the drops (gtts). Sts using prednisolone Q1h, cydopentolate 3 x day, and ofloxacin 4 x day od Last edited by Serena Garcia on 10/29/2022 9:17 AM. ROS Positive for: Eyes Last edited by Serena Garcia on 10/29/2022 9:17 AM. No Known Allergies Past Medical History: Diagnosis Date Acute anterior uveitis of left eye 12/06/2018 Blurry vision Decreased vision Light sensitivity Social History Tobacco Use Smoking status: Every Day Packs/day: 1.00 Types: Cigarettes Smokeless tobacco: Never Substance Use Topics Alcohol use: Yes Alcohol/week: 12.0 standard drinks Types: 12 Cans of beer per week Past Surgical History: Procedure Laterality Date TONSILLECTOMY (HISTORICAL) Family History Problem Relation Name Age of Onset Blindness Mother Diabetes Mother Glaucoma Neg Hx Cataracts Neg Hx Amblyopia Neg Hx Retinal detachment Neg Hx Macular degeneration Neg Hx Strabismus Neg Hx Objective Base Eye Exam Visual Acuity (Snellen - Linear) Right Left Dist cc 20/40 -1 20/20 -2 Tonometry (Applanation, 9:22 AM) Right Left Pressure 15 15 Pupils Dark Light APD Right 5 5 None Left 2 1 None Neuro/Psych Oriented x3: Yes Mood/Affect: Normal Slit Lamp and Fundus Exam Slit Lamp Exam Right Left Lids/Lashes Normal Conjunctiva/Sclera injection White and quiet Cornea folds in descemet's Clear Anterior Chamber no flare, minimal cell Deep and quiet Iris posterior synechiae some broken some still present Round and reactive Lens Nuclear sclerosis significant pigment residuals on anterior capsule Clear Anterior Vitreous Cloudy ? visible cells Normal I ANAMIKA MADISON MD documented in this encounter [facility] 10-24-2022 Telephone encount er Note Name of caller: Paulina Contact phone number: [phone] Relationship to Patient: spouse/SO Provider: Dr. Novak Practice: [facility] Chief Complaint/Reason for Call: Paulina calling in requesting to schedule a new pt appt. She states that a referral has been placed and the pt will need to be seen for his cataracts; difficulty seeing prior to having surgery to check if there is any underlining conditions. Please Advise. Best time of day caller can be reached: ANY Patient advised that office/PCP has 24-48 business hours to return their call: Yes [facility] 10-24-2022 Miscellaneous Notes Formattin g of this note might be different from the original. Name of caller: Paulina Contact phone number: [phone] Relationship to Patient: spouse/SO Provider: Dr. Novak Practice: [facility] Chief Complaint/Reason for Call: Paulina calling in requesting to schedule a new pt appt. She states that a referral has been placed and the pt will need to be seen for his cataracts; difficulty seeing prior to having surgery to check if there is any underlining conditions. Please Advise. Best time of day caller can be reached: ANY Patient advised that office/PCP has 24-48 business hours to return their call: Yes documented in this encounter [facility] 10-24-2022 History of Presen t illness Narrative Images from the original note were not included. [facility] [address] [facility] [address] Dept: [phone] Dept Loc: [phone] Visit type: Established patient Reason for Visit: Eye Trauma Assessment and Plan 1. Acute anterior uveitis of right eye 1 - Stable. Still with cell and flare but I am concerned that patient has inflammation in the vitreous as the view of the retina is very poor. Although there is some cataract it is not sufficient to explain the poor view of the retina. I will continue PF1% q1h while awake and cyclopentolate TID (not QID) and have patient see Dr. Pierre next week. If she thinks there is inflammation in the vitreous consider a diagnostic tap and / or intravitreal steroid. Also note patient became belligerent during the visit and expected instant cure for vision and didn't want to listen to explanations of his pathology. I tried to explain the disease as best I could and explain a realistic time frame for results. This patient easily loses his temper. Follow up in about 1 week (around 10/31/2022) for DOA follow up with Dr. Pierre. Subjective HPI Eye Trauma In right eye. Type of trauma is direct. Duration of 2 weeks. Associated signs and symptoms include blurred vision. Comments: (eye pain: 2). Pain was noted as 0/10. Since onset it is stable. Comments Pt using pred forte (PF) every hour while awake right eye. Cyclo1% 4 times daily right eye. deh Last edited by SHARON Plaza on 10/24/2022 10:09 AM. ROS Positive for: Eyes (iritis and uveitis) Last edited by SHARON Plaza on 10/24/2022 10:09 AM. No Known Allergies @[email or web address]@ Past Medical History: Diagnosis Date Acute anterior uveitis of left eye 12/06/2018 Blurry vision Decreased vision Light sensitivity Social History Tobacco Use Smoking status: Every Day Packs/day: 1.00 Types: Cigarettes Smokeless tobacco: Never Substance Use Topics Alcohol use: Yes Alcohol/week: 12.0 standard drinks Types: 12 Cans of beer per week Past Surgical History: Procedure Laterality Date TONSILLECTOMY (HISTORICAL) Family History Problem Relation Name Age of Onset Blindness Mother Diabetes Mother Glaucoma Neg Hx Cataracts Neg Hx Amblyopia Neg Hx Retinal detachment Neg Hx Macular degeneration Neg Hx Strabismus Neg Hx Objective Base Eye Exam Visual Acuity (Snellen - Linear) Right Left Dist cc 20/200 20/20 Dist ph cc NI Correction: Glasses Tonometry (Applanation, 10:21 AM) Right Left Pressure 9 15 Neuro/Psych Oriented x3: Yes Mood/Affect: Normal Slit Lamp and Fundus Exam Slit Lamp Exam Right Left Lids/Lashes Normal Conjunctiva/Sclera White and quiet Cornea Clear Anterior Chamber 3+ Flare, 2+ Cell Deep and quiet Iris Round and reactive Lens Nuclear sclerosis Clear Anterior Vitreous Cloudy Normal Fundus Exam Poor view OD Data Reviewed and Summarized Labs: Imaging/Testing: Procedures: lAvin Valles MD documented in this encounter [facility] 10-17-2022 Evaluation + Plan note Associated Problem(s): Acute iritis right eye (OD) iritis has improved. Pupils is still trying to dilate and some synechiae remain. Continue current regimen. FU 1 week. Will get rheumatology referral as this is his second bout of iritis. [facility] 10-17-2022 Miscellaneous Notes Associate d Problem(s): Acute iritis right eye (OD) iritis has improved. Pupils is still trying to dilate and some synechiae remain. Continue current regimen. FU 1 week. Will get rheumatology referral as this is his second bout of iritis. documented in this encounter [facility] 10-17-2022 History of Presen t illness Narrative Images from the original note were not included. [facility] [address] [facility] [address] [facility] [address] Dept: [phone] Dept Loc: [phone] Visit type: Established patient Reason for Visit: iritis od Assessment and Plan Acute iritis right eye (OD) iritis has improved. Pupils is still trying to dilate and some synechiae remain. Continue current regimen. FU 1 week. Will get rheumatology referral as this is his second bout of iritis. Follow up in about 1 week (around 10/24/2022) for Iritis follow up. Subjective HPI 47 years old male here for follow-up iritis od. C/o od still irritating but nothing major like it was and feels dry. Sts od not sensitive to light any more. Sts still blurry va od but can see better than last time. Sts using prednisolone q1h od and cyclogel 4 x day od Last edited by Serena Garcia on 10/17/2022 2:50 PM. ROS Positive for: Eyes Last edited by Serena Garcia on 10/17/2022 2:50 PM. No Known Allergies Past Medical History: Diagnosis Date Acute anterior uveitis of left eye 12/06/2018 Blurry vision Decreased vision Light sensitivity Social History Tobacco Use Smoking status: Every Day Packs/day: 1.00 Types: Cigarettes Smokeless tobacco: Never Substance Use Topics Alcohol use: Not Currently Past Surgical History: Procedure Laterality Date TONSILLECTOMY (HISTORICAL) Family History Problem Relation Name Age of Onset Glaucoma Neg Hx Cataracts Neg Hx Amblyopia Neg Hx Retinal detachment Neg Hx Macular degeneration Neg Hx Blindness Mother Strabismus Neg Hx Objective Base Eye Exam Visual Acuity (Snellen - Linear) Right Left Dist cc 20/80 20/20 Dist ph cc NI Tonometry (Applanation, 2:56 PM) Right Left Pressure 9 14 Neuro/Psych Oriented x3: Yes Mood/Affect: Normal Slit Lamp and Fundus Exam External Exam Right Left External NormalNormalNormal NormalNormalNormal Slit Lamp Exam Right Left Lids/Lashes NormalNormalNormal Normal no chalazionNormalNormal no chalazion Conjunctiva/Sclera White and quietWhite and quietWhite and quiet, 3+ Injection White and quiet Cornea Corneal haze and enddothelial folds inferiorly. Small bullae at limbus at 5-6 o'clock Clear Anterior Chamber Poor view due to corneal changes, no hypopyon Deep and quiet Iris Iris vessels are engorged especially at 3 o'clock Round and reactive Lens fibrin? poor view through pupil Pigmented ring on capsule diffuse pigment on capsulePigmented ring on capsule diffuse pigment on capsulePigmented ring on capsule diffuse pigment on capsule Anterior Vitreous NormalNormal Fundus Exam Right Left Disc NormalNormal C/D Ratio 0.250.25 Macula Normal Vessels Normal Periphery Normal I ANAMIKA MADISON MD documented in this encounter [facility] 10-14-2022 Evaluation + Plan note Associated Problem(s): Acute iritis right eye (OD). Given that he has a history of iritis os, I think he will need a uveitic work up when feeling better. pred forte (PF) q 1 hour while awake. Cyclogyl qid. Fu on . [facility] 10-14-2022 Miscellaneous Notes Associate d Problem(s): Acute iritis right eye (OD). Given that he has a history of iritis os, I think he will need a uveitic work up when feeling better. pred forte (PF) q 1 hour while awake. Cyclogyl qid. Fu on . documented in this encounter [facility] 10-14-2022 History of Presen t illness Narrative Images from the original note were not included. [place] [facility] [address] [facility] [address] Dept: [phone] Dept Loc: [phone] Visit type: New patient Reason for Visit: Eye Pain and scratch on cornea od Assessment and Plan Acute iritis right eye (OD). Given that he has a history of iritis os, I think he will need a uveitic work up when feeling better. pred forte (PF) q 1 hour while awake. Cyclogyl qid. Fu on . Follow up in about 2 days (around 10/16/2022) for Iritis follow up. Subjective HPI Eye Pain In right eye. Characterized as aching, irritation, burning, pressure, sharp pain and pain with eye movement. Pain was noted as 10/10. Occurring constantly. It is worse throughout the day. Duration of days. Since onset it is rapidly worsening. Associated symptoms include blurred vision, foreign body sensation, redness, photophobia, tearing, headaches and nausea. Treatments tried include eye drops. Response to treatment was no improvement. Comments 47 years old male presents to the clinic c/o scratch on cornea od and pain 10/10. C/o could not sleep last night, tired, headache and feel like going to throw up. C/o one giant color block, cannot see people faces or anything. Sts at first thought it is pink eye and went to urgent care and told corneal abrasion od. Sts using ciprofloxacin q2h od and ketorolac 4 x day od Last edited by Serena Garcia on 10/14/2022 10:21 AM. ROS Positive for: Eyes Last edited by Serena Garcia on 10/14/2022 10:21 AM. No Known Allergies Past Medical History: Diagnosis Date Acute anterior uveitis of left eye 12/06/2018 Blurry vision Decreased vision Light sensitivity Social History Tobacco Use Smoking status: Every Day Packs/day: 1.00 Types: Cigarettes Smokeless tobacco: Never Substance Use Topics Alcohol use: Not Currently Past Surgical History: Procedure Laterality Date TONSILLECTOMY (HISTORICAL) Family History Problem Relation Name Age of Onset Glaucoma Neg Hx Cataracts Neg Hx Amblyopia Neg Hx Retinal detachment Neg Hx Macular degeneration Neg Hx Blindness Mother Strabismus Neg Hx Objective Base Eye Exam Visual Acuity (Snellen - Linear) Right Left Dist sc HM Dist cc 20/25 Tonometry (Applanation, 10:30 AM) Right Left Pressure 20 18 Neuro/Psych Oriented x3: Yes Mood/Affect: Normal Slit Lamp and Fundus Exam External Exam Right Left External NormalNormalNormal NormalNormalNormal Slit Lamp Exam Right Left Lids/Lashes NormalNormalNormal Normal no chalazionNormalNormal no chalazion Conjunctiva/Sclera White and quietWhite and quietWhite and quiet, 3+ Injection White and quiet Cornea Corneal haze and enddothelial folds inferiorly. Small bullae at limbus at 5-6 o'clock Clear Anterior Chamber Poor view due to corneal changes, no hypopyon Deep and quiet Iris Iris vessels are engorged especially at 3 o'clock Round and reactive Lens fibrin? poor view through pupil Pigmented ring on capsule diffuse pigment on capsulePigmented ring on capsule diffuse pigment on capsulePigmented ring on capsule diffuse pigment on capsule Anterior Vitreous NormalNormal Fundus Exam Right Left Disc NormalNormal C/D Ratio 0.250.25 Macula Normal Vessels Normal Periphery Normal I ANAMIKA MADISON MD documented in this encounter [facility] Evaluation note Diagnosis Acute iritis- Primary Unspecified acute and subacute iridocyclitis Acute iritis- Primary Unspecified acute and subacute iridocyclitis Acute anterior uveitis of left eye Acute anterior uveitis of left eye- Primary Acute iritis- Primary Unspecified acute and subacute iridocyclitis [facility] Diagnosis Acute iritis- Primary Unspecified acute and subacute iridocyclitis Acute iritis- Primary Unspecified acute and subacute iridocyclitis Acute anterior uveitis of left eye Acute anterior uveitis of left eye- Primary Acute iritis- Primary Unspecified acute and subacute iridocyclitis [facility] Diagnosis Acute iritis- Primary Unspecified acute and subacute iridocyclitis Acute iritis- Primary Unspecified acute and subacute iridocyclitis Acute anterior uveitis of left eye Acute anterior uveitis of left eye- Primary Acute iritis Unspecified acute and subacute iridocyclitis [facility] Diagnosis Acute iritis- Primary Unspecified acute and subacute iridocyclitis Acute iritis- Primary Unspecified acute and subacute iridocyclitis Acute anterior uveitis of left eye Acute anterior uveitis of left eye- Primary Iritis, chronic- Primary Unspecified chronic iridocyclitis [facility] Diagnosis Acute iritis- Primary Unspecified acute and subacute iridocyclitis Acute iritis- Primary Unspecified acute and subacute iridocyclitis Acute anterior uveitis of left eye Acute anterior uveitis of left eye- Primary Acute iritis- Primary Unspecified acute and subacute iridocyclitis [facility] Diagnosis Acute iritis- Primary Unspecified acute and subacute iridocyclitis documented in this encounter [facility] note* Diagnosis Acute anterior uveitis of right eye- Primary documented in this encounter [facility] note* Diagnosis Acute anterior uveitis of left eye- Primary documented in this encounter [facility] note* Diagnosis Acute iritis- Primary Unspecified acute and subacute iridocyclitis Acute anterior uveitis of left eye documented in this encounter [facility] note* Diagnosis Acute iritis- Primary Unspecified acute and subacute iridocyclitis documented in this encounter [facility] note* Diagnosis Acute iritis- Primary Unspecified acute and subacute iridocyclitis Acute iritis- Primary Unspecified acute and subacute iridocyclitis Acute anterior uveitis of left eye Acute anterior uveitis of left eye- Primary Unspecified acute and subacute iridocyclitis- Primary documented in this encounter [facility] for referral (narrative)* Consultation (Routine) - Pending Review Specialty Diagnoses / Procedures Referred By Leandro mendoza Referred To Contact Rheumatology Diagnoses Acute anterior uveitis of left eye Procedures [facility] 60-74 MINUTES Anamika Madison MD [address] [place] [address] [address] [place] [address] Referral ID Status Reason Start Date Expiration Date Visits Requested Visits Authorized [id number] Pending Review Specialty Services Required 10/17/2022 10/17/2023 1 1 [facility] Summary Purpose Family History No Family History Records FoundNo Family History Records FoundNo Family History Records FoundNo Family History Records FoundNo Family History Records Found Advance Directives No Advanced Directives Records FoundNo Advanced Directives Records FoundNo Advanced Directives Records FoundNo Advanced Directives Records FoundNo Advanced Directives Records Found Additional Source Comments (unrecognized sect ion and content) No Status Records FoundNo Status Records FoundNo Status Records FoundNo Status Records FoundNo Status Records Found INFORMATION SOURCE (unrecogn ized section and content) DATE CREATED AUTHOR 03/24/2018 [facility] DATE CREATED AUTHOR AUTHOR'S ORGANIZ ATION 08/02/2018 [facility] DATE CREATED AUTHOR AUTHOR'S ORGANIZ ATION 12/27/2018 [facility] DATE CREATED AUTHOR AUTHOR'S ORGANIZ ATION 08/26/2024 [facility] DATE CREATED AUTHOR AUTHOR'S ORGANIZ ATION 08/31/2024 [facility] Reason for Visit (unrecogniz ed section and content) Reason Onset Date Comments Eye Problem 08/08/2024 Reason Comments Other Red, foggy and pain od Reason Comments Other Acute iritis Reason Onset Date Comments No Show 08/29/2024 Reason Comments acute anterior uveitis od Reason Comments Eye Trauma Reason Onset Date Comments Med Refill 11/03/2022 Reason Onset Date Comments Appointment 10/24/2022 Reason Comments iritis od Reason Comments Eye Pain scratch on cornea od Reason Onset Date Comments OTHER 11/03/2022 Care Teams (unrecognized sec tion and content) Medical Radiation Tech Relationship Specialty Start Date End Date Inc [facility] [address] [place] [address] PCP - General 10/14/22 Medical Radiation Tech Relationship Specialty Start Date End Date [facility] [address] [place] [address] PCP - General 10/14/22 Medical Radiation Tech Relationship Specialty Start Date End Date [facility] [address] [place] [address] PCP - General 10/14/22 Medical Radiation Tech Relationship Specialty Start Date End Date [facility] [address] [place] [address] PCP - General 10/14/22 Medical Radiation Tech Relationship Specialty Start Date End Date [facility] [address] [place] [address] PCP - General 10/14/22 Medical Radiation Tech Relationship Specialty Start Date End Date [facility] [address] [place] [address] PCP - General 10/14/22 Medical Radiation Tech Relationship Specialty Start Date End Date [facility] [address] [place] [address] PCP - General 10/14/22 Medical Radiation Tech Relationship Specialty Start Date End Date [facility] [address] [place] [address] PCP - General 10/14/22 Medical Radiation Tech Relationship Specialty Start Date End Date None, Pcp [address] [place] [address] PCP - General 10/14/22 Medical Radiation Tech Relationship Specialty Start Date End Date None, Pcp [address] [place] [address] PCP - General 10/14/22 Medical Radiation Tech Relationship Specialty Start Date End Date None, Pcp [address] [place] [address] PCP - General 10/14/22 Medical Radiation Tech Relationship Specialty Start Date End Date None, Pcp [address] [place] [address] PCP - General 10/14/22 Medical Radiation Tech Relationship Specialty Start Date End Date None, Pcp [address] [place] [address] PCP - General 10/14/22 Medical Radiation Tech Relationship Specialty Start Date End Date None, Pcp [address] [place] [address] PCP - General 10/14/22 Medical Radiation Tech Relationship Specialty Start Date End Date None, Pcp [address] [place] [address] PCP - General 10/14/22 FOR RECORDS PERTAINING TO PATIENTS WHO ARE OR HAVE BEEN ENROLLED IN A CHEMICAL DEPENDENCY/SUBSTANCEABUSE PROGRAM, SOME INFORMATION MAY BE OMITTED. This clinical summary was aggregated from multiple sources. Caution should be exercised in using it in the provision of clinical care. This summary normalizes information from multiple sources, and as a consequence, information in this document may materially change the coding, format and clinical context of patient data. In addition, data may be omitted in some cases. CLINICAL DECISIONS SHOULD BE BASED ON THE PRIMARY CLINICAL RECORDS. [employer] provides no warranty or guarantee of the accuracy or completeness of information in this document.
[2025-05-07 17:40] VITALS: BP 137/107; PULSE 90; RESP 11; O2SAT 99
[2025-05-07 19:00] VITALS: PULSE 101; O2SAT 98
[2025-05-07 19:55] VITALS: BP 144/107; PULSE 100; RESP 18; TEMP 37; O2SAT 96
== END 2025-05-07 20:21 | disposition home or self-care (01) ==
PROVIDERS: Emergency Provider Emergency Medicine; Referring Provider Emergency Medicine; Visit Provider Emergency Medicine
DX: S71.112A Laceration without foreign body, left thigh, initial encounter (principal); F17.210 Nicotine dependence, cigarettes, uncomplicated; X58.XXXA Exposure to other specified factors, initial encounter
CPT/HCPCS: 12004; 73552; 80048; 85025; 85610; 85730; 96374; 96375; 96376; 99285; J2405